=== PATIENT | female | born 1990 | race Caucasian/White ===

== ENCOUNTER 2018-07-12 12:48 | Emergency (ER) | payer BC, OTHER ==
--- NOTE | 2018-07-12 13:19 | UC ---
Knee Pain HPI - HPI Summary HPI Summary: 27 yo female presents with RIGHT knee injury. She tells me that at about 0900 this morning she was walking on the sidewalk and tripped on an uneven portion. She fell forward on to her right knee. Sustained a superficial abrasion to her right knee. Was able to get to her feet and walk home, she did not have much discomfort. While resting and elevating her knee her pain increased and now her pain is worse with ambulating. She is ambulatory without assistance, but does have a mild limp. She denies numbness or tingling. - History of Current Complaint Stated Complaint: WC S/P FALL RIGHT KNEE Time Seen by Provider: 07/12/18 13:18 Hx Obtained From: Patient Hx Last Menstrual Period: 07/11/15 Onset/Duration: Sudden Onset Severity Initially: Mild Severity Currently: Moderate Pain Intensity: 6 Pain Scale Used: 0-10 Numeric - Allergies/Home Medications Allergies/Adverse Reactions: Allergies Allergy/AdvReac Type Severity Reaction Status Date / Time No Known Allergies Allergy Verified 07/12/18 13:15 Home Medications: Home Medications Anxiety Medication 40 mg PO DAILY 07/12/18 [History] Ibuprofen TAB* [Advil TAB*] 800 mg PO Q6H PRN 07/12/18 [History Confirmed ] PMH/Surg Hx/FS Hx/Imm Hx Psychological History: Anxiety Other History Of: Negative For: HIV, Hepatitis B, Hepatitis C - Surgical History Surgical History: None - Family History Known Family History: Positive: None - Social History Occupation: Employed Full-time Lives: With Family Alcohol Use: None Substance Use Type: Excessive Caffeine Smoking Status (MU): Never Smoked Tobacco - Immunization History Most Recent Influenza Vaccination: no Review of Systems All Other Systems Reviewed And Are Negative: Yes Constitutional: Positive: Negative Skin: Positive: Other - Abrasion right knee Respiratory: Positive: Negative Cardiovascular: Positive: Negative Neurovascular: Positive: Negative Musculoskeletal: Positive: Other: - Right knee pain Neurological: Positive: Negative Psychological: Positive: Negative Physical Exam - Summary Physical Exam Summary: GENERAL: NAD. WDWN. No pain distress. SKIN: Superficial abrasion overlying right patella. CHEST: No accessory muscle use. Breathing comfortably and in no distress. CV: . Pulses intact popliteal, PT, and DP. Cap refill <2seconds MSK: RIGHT KNEE: Mild TTP about patella. Mild edema about knee. Strength 5/5. No obvious bony deformities. No patella apprehension. Negative Beto, A/P drawer, Bhupinder, and varus/valgus stress. NEURO: Alert. Sensations intact and symmetric B/L LEs PSYCH: Age appropriate behavior. Triage Information Reviewed: Yes Vital Signs: Vital Signs: Temp Pulse Resp BP Pulse Ox 99.2 F 84 14 142/88 100 07/12/18 13:17 07/12/18 13:17 07/12/18 13:17 07/12/18 13:17 07/12/18 13:17 Vital Signs Reviewed: Yes Knee Pain Course/Dx - Course Course Of Treatment: XR: IMPRESSION: NO ACUTE OSSEOUS INJURY. IF SYMPTOMS PERSIST, RECOMMEND REPEAT IMAGING. Suspect knee contusion/pain from impact. In the clinic pt's tdap was update, wound was cleansed and bandaged. PRINCE wrap applied and crutches provided. Advised to RICE and use crutches as needed for comfort. If her symptoms do not improve in a few days to f/u with [facility]. - Differential Dx/Diagnosis Provider Diagnosis: Knee pain, Abrasion Discharge - Sign-Out/Discharge Documenting (check all that apply): Patient Departure All imaging exams completed and their final reports reviewed: Yes - Discharge Plan Condition: Stable Disposition: HOME Patient Education Materials: Crutch Instructions (ED), Abrasion (ED), Knee Pain (ED) Referrals: Pinky Mclain MD [Primary Care Provider] - Jovany Armendariz MD [Medical Doctor] - If Needed Additional Instructions: If you develop a fever, shortness of breath, chest pain, new or worsening symptoms - please call your PCP or go to the ED immediately. Your blood pressure was high at todays visit. Please see your primary provider within 4 weeks for recheck and re-evaluation. 1) Rest, Ice, and elevate your knee as much as possible 2) Use the crutches as needed for comfort 3) If your symptoms do not improve in 5-7 days, please call [facility] at the number below to schedule an appointment for a recheck of your knee. - Billing Disposition and Condition Condition: STABLE Disposition: Home - Attestation Statements Provider Attestation: I was available for consult. This patient was seen by the ROGERIO. The patient was not presented to, seen by, or examined by me. -Gisella
[2018-07-12 13:21] VITALS: BP 142/88
[2018-07-12] MEDS ORDERED: Tetan/Diph/Pertus SYR(Tdap)* 0.5 ML SYR(BOOSTRIX) use SYR IM ONE (13:26)
== END 2018-07-12 14:01 | disposition home or self-care (01) ==
LOC: UCCORT 12:48
DX: S80.211A Abrasion, right knee, initial encounter (principal); M25.561 Pain in right knee; X58.XXXA Exposure to other specified factors, initial encounter; Y92.9 Unspecified place or not applicable
CPT/HCPCS: 90471; 90715; 99203; G0463